=== PATIENT | female | born 1930 | race Hispanic/Latino ===

== ENCOUNTER → 2018-04-28 | Outpatient (CLI) | payer OTHER, MEDICARE | END | disposition home or self-care (01) | LOC: RAH 11:29 | PROVIDERS: ATTEND Internal Medicine | DX: M16.11 Unilateral primary osteoarthritis, right hip (principal); M85.88 Other specified disorders of bone density and structure, other site; W18.30XA Fall on same level, unspecified, initial encounter; Y93.89 Activity, other specified; Y92.89 Other specified places as the place of occurrence of the external cause; Y99.8 Other external cause status | CPT/HCPCS: 73502 ==

== ENCOUNTER 2018-11-15 12:11 | Emergency (ER) | payer OTHER, MEDICARE ==
[2018-11-15] MEDS ORDERED: ONDANSETRON HCL 4 MG/2 ML VIAL ONE ×2 (13:04→13:08)
[2018-11-15] MEDS ORDERED: MORPHINE SULFATE 4 MG/1ML SYG ONE ×2 (13:04→13:08)
[2018-11-15 13:26] LABS: HEMATOCRIT 32.9 % (36-48); LYMPHOCYTES % (AUTO) 14.2 % (21.0-51.0); MEAN CORPUSCULAR HEMOGLOBIN 32.6 pg (27.0-33.0); MEAN CORPUSCULAR HGB CONC 33.6 g/dL (32.0-36.0); MEAN CORPUSCULAR VOLUME 97.1 fL (79-99); MONOCYTES % (AUTO) 4.5 % (3.0-13.0); NEUTROPHILS % (AUTO) 80.3 % (40.0-77.0); PLATELET COUNT (AUTO) 278 K/uL (130-400); RED BLOOD CELL COUNT(AUTO) 3.38 MIL/uL (4.00-5.50); RED CELL DISTRIBUTION WIDTH 14.3 % (11.0-15.5); WHITE BLOOD COUNT (AUTO) 11.2 K/uL (4.8-10.8)
[2018-11-15 14:31] LABS: POTASSIUM 4.5 mmol/L (3.5-5.1)
[2018-11-15 14:36] LABS: ALBUMIN 3.4 g/dL (3.5-5.0); BILIRUBIN,TOTAL 0.3 mg/dL (0.2-1.0); TOTAL PROTEIN, SERUM 7.3 g/dL (6.0-8.3)
== END 2018-11-15 16:25 | disposition home or self-care (01) ==
LOC: EDH 12:11
DX: S42.291A Other displaced fracture of upper end of right humerus, initial encounter for closed fracture (principal); E10.8 Type 1 diabetes mellitus with unspecified complications; I10 Essential (primary) hypertension; F03.90 Unspecified dementia, unspecified severity, without behavioral disturbance, psychotic disturbance, mood disturbance, and anxiety; F41.9 Anxiety disorder, unspecified; F32.9 Major depressive disorder, single episode, unspecified; E78.5 Hyperlipidemia, unspecified; W01.0XXA Fall on same level from slipping, tripping and stumbling without subsequent striking against object, initial encounter; Y93.89 Activity, other specified; Y92.89 Other specified places as the place of occurrence of the external cause; Y99.8 Other external cause status
CPT/HCPCS: 36415; 73030; 73060; 80053; 85025; 96374; 96375; 99284; J2270; J2405 ×2

== ENCOUNTER → 2019-01-07 | Outpatient (CLI) | payer OTHER, MEDICARE | END | disposition home or self-care (01) | LOC: RAH 12:06 | PROVIDERS: ATTEND Internal Medicine | DX: S42.201D Unspecified fracture of upper end of right humerus, subsequent encounter for fracture with routine healing (principal); L84 Corns and callosities; X58.XXXD Exposure to other specified factors, subsequent encounter | CPT/HCPCS: 73030; 73060 ==

== ENCOUNTER → 2019-01-26 | Outpatient (CLI) | payer OTHER, MEDICARE | END | disposition home or self-care (01) | LOC: RAH 09:07 | PROVIDERS: ATTEND Internal Medicine | DX: K80.20 Calculus of gallbladder without cholecystitis without obstruction (principal); K59.00 Constipation, unspecified; M43.8X6 Other specified deforming dorsopathies, lumbar region; M47.816 Spondylosis without myelopathy or radiculopathy, lumbar region; R16.0 Hepatomegaly, not elsewhere classified | CPT/HCPCS: 74018; 76700 ==

== ENCOUNTER → 2019-04-28 | Outpatient (CLI) | payer OTHER, MEDICARE | END | disposition home or self-care (01) | LOC: RAH 11:52 | PROVIDERS: ATTEND Internal Medicine | DX: M19.011 Primary osteoarthritis, right shoulder (principal); M85.811 Other specified disorders of bone density and structure, right shoulder | CPT/HCPCS: 73030 ==

== ENCOUNTER 2020-09-29 20:55 | Inpatient (IN) | payer OTHER, MEDICARE ==
[~2020-09-29] VITALS: Ht 160 cm; Wt 69.9 kg
[2020-09-29] MEDS ORDERED: SODIUM CHLORIDE 0.9% 1000ML 1,000 ML IV ONE (21:06)
[2020-09-29 21:31] LABS: BASOPHILS % (AUTO) 0.2 % (0.0-5.0); HEMATOCRIT 28.8 % (36-48); LYMPHOCYTES % (AUTO) 13.6 % (21.0-51.0); MEAN CORPUSCULAR HEMOGLOBIN 32.2 pg (27.0-33.0); MEAN CORPUSCULAR HGB CONC 35.4 g/dL (32.0-36.0); MEAN CORPUSCULAR VOLUME 90.9 fL (79-99); MONOCYTES % (AUTO) 6.2 % (3.0-13.0); NUCLEATED RED BLOOD CELLS 0.7 % (0.0-0.19); PLATELET COUNT (AUTO) 132 K/uL (130-400); RED BLOOD CELL COUNT(AUTO) 3.17 MIL/uL (4.00-5.50); RED CELL DISTRIBUTION WIDTH 12.9 % (11.0-15.5)
[2020-09-29 21:42] LABS: INR 1.07 (0.85-1.15); PARTIAL THROMBOPLASTIN TIME 30.2 SEC (26.3-35.5); PROTHROMBIN TIME 11.5 SEC (9.6-11.6)
[2020-09-29 21:51] LABS: ALBUMIN 2.4 g/dL (3.5-5.0); BILIRUBIN,TOTAL 0.3 mg/dL (0.2-1.0); TOTAL PROTEIN, SERUM 5.9 g/dL (6.0-8.3)
[2020-09-29 21:55] LABS: MAGNESIUM 2.1 mg/dL (1.80-2.40)
[2020-09-29 21:58] LABS: CREATININE 7.9 mg/dL (0.5-1.5); POTASSIUM 2.4 mmol/L (3.5-5.1)
[2020-09-29 22:10] LABS: APPEARANCE,URINE SL CLOUDY (CLEAR); BILIRUBIN,URINE SMALL (NEGATIVE); COLOR,URINE OTHER (YELLOW); GLUCOSE, URINE (UA) NEGATIVE (NEGATIVE); KETONES,URINE 5 mg/dL (NEGATIVE); LEUKOCYTE ESTERASE ,URINE NEGATIVE (NEGATIVE); NITRATE,URINE POSITIVE (NEGATIVE); OCCULT BLOOD,URINE NEGATIVE (NEGATIVE); PROTEIN,URINE TRACE mg/dL (NEGATIVE); UROBILINOGEN,URINE 0.2 mg/dL (0.2-1.0)
[2020-09-29 22:17] LABS: AMORPHOUS SEDIMENT,UR Rare /LPF (None Seen); BACTERIA,URINE Few /HPF (None Seen); RBC,URINE 0-1 /HPF (0-1); SQUAMOUS EPITHELIAL CELL,UR Few /HPF (0-2); WBC,URINE 0-1 /HPF (0-1)
[2020-09-29 22:18] LABS: COARSE GRANULAR CASTS,URINE 0-2 /LPF (None Seen)
[2020-09-30] MEDS ORDERED: METRONIDAZOLE 500MG/100ML BAG 100 ML IV SCH (00:30)
[2020-09-30] MEDS ORDERED: ONDANSETRON HCL 4 MG/2 ML VIAL IV PRN (00:30)
[2020-09-30] MEDS ORDERED: ACETAMINOPHEN 325 MG TAB PO PRN (00:30)
[2020-09-30] MEDS: POTASSIUM CHLORIDE 20 MEQ ERTAB PO SCH (00:30)
[2020-09-30] MEDS ORDERED: SODIUM CHLORIDE 0.9% 1000ML 1,000 ML IV SCH (00:30)
[2020-09-30] MEDS ORDERED: FAMOTIDINE 20MG TAB 20 MG TAB ONE (00:45)
[2020-09-30] MEDS ORDERED: METRONIDAZOLE 500MG/100ML BAG 100 ML ONE (00:46)
[2020-09-30] MEDS ORDERED: POTASSIUM CHLORIDE 20 MEQ ERTAB PO ONE (00:46)
[2020-09-30 02:00] VITALS: BP 94/43
[2020-09-30] MEDS ORDERED: MEMA5TAB7 PO ×2 (02:22→08:39)
[2020-09-30] MEDS ORDERED: ASPI-1443 PO (02:22)
[2020-09-30] MEDS ORDERED: LISI40TA4 PO (02:22)
[2020-09-30] MEDS ORDERED: AMLO-258 PO (02:22)
[2020-09-30] MEDS ORDERED: PRAV40TA3 PO ×2 (02:22)
[2020-09-30] MEDS ORDERED: LEVO75TA10 PO (02:22)
[2020-09-30] MEDS ORDERED: TRAZ-187 PO (02:22)
[2020-09-30 03:57] VITALS: BP 95/43
[2020-09-30] MEDS: INSULIN HUMULIN R 100 UNIT/ML 3ML SQ SCH ×3 (05:55→21:00)
[2020-09-30 06:16] LABS: BASOPHILS % (AUTO) 0.7 % (0.0-5.0); HEMATOCRIT 31.9 % (36-48); LYMPHOCYTES % (AUTO) 12.9 % (21.0-51.0); MEAN CORPUSCULAR HGB CONC 35.4 g/dL (32.0-36.0); MEAN CORPUSCULAR VOLUME 90.4 fL (79-99); MONOCYTES % (AUTO) 5.7 % (3.0-13.0); NEUTROPHILS % (AUTO) 77.3 % (40.0-77.0); NUCLEATED RED BLOOD CELLS 0.4 % (0.0-0.19); PLATELET COUNT (AUTO) 153 K/uL (130-400); RED BLOOD CELL COUNT(AUTO) 3.53 MIL/uL (4.00-5.50); RED CELL DISTRIBUTION WIDTH 12.9 % (11.0-15.5); WHITE BLOOD COUNT (AUTO) 5.6 K/uL (4.8-10.8)
[2020-09-30 06:30] LABS: CREATININE 6.9 mg/dL (0.5-1.5)
[2020-09-30 06:50] LABS: POTASSIUM 2.5 mmol/L (3.5-5.1)
--- NOTE | 2020-09-30 06:52 | NUR ---
Nursing Note-Critical Labs Paged Hospitalist at 6601 about K2.5 BUN 97. Pending Call back.
[2020-09-30] MEDS ORDERED: POTASSIUM CHLORIDE 10MEQ/100ML 100 ML IV PRN (07:30)
[2020-09-30] MEDS ORDERED: POTASSIUM CHLORIDE 20 MEQ ERTAB PO PRN (07:30)
[2020-09-30] MEDS ORDERED: LACTATED RINGERS 1000ML 1,000 ML IV ONE ×2 (07:47→16:18)
[2020-09-30 08:00] VITALS: BP 109/51
[2020-09-30] MEDS ORDERED: ESOM20TA PO (08:39)
[2020-09-30] MEDS ORDERED: METR-172 PO (08:39)
[2020-09-30] MEDS ORDERED: METO25TA6 PO (08:39)
[2020-09-30] MEDS ORDERED: SEMA7TAB PO (08:39)
[2020-09-30] MEDS ORDERED: INSLAN SQ (08:39)
[2020-09-30] MEDS ORDERED: LEVOTHYROXINE 75 MCG TABLET PO SCH (09:00)
[2020-09-30] MEDS ORDERED: FAMOTIDINE 20MG TAB 20 MG TAB PO SCH (09:00)
[2020-09-30] MEDS: CEFTRIAXONE SODIUM 1 GM IVP SCH (09:45)
[2020-09-30] MEDS: POTASSIUM CHLORIDE 10MEQ/100ML 100 ML IV PRN ×4 (09:45→21:14)
[2020-09-30] MEDS: PANTOPRAZOLE SODIUM 40 MG TABLET.DR PO SCH (10:09)
[2020-09-30] MEDS ORDERED: PHARMACY COMMUNICATION MISC SCH (10:15)
[2020-09-30 11:39] VITALS: BP 109/51
[2020-09-30] MEDS: METRONIDAZOLE 500MG/100ML BAG 100 ML IV SCH ×2 (13:43→21:12)
--- NOTE | 2020-09-30 14:00 | NUR ---
MET WITH PATIENT AND DAUGHTER AT BEDSIDE FOR DC PLANNING. DAUGHTER JANN OLIVO IS THE MPOA, AND STATES PATIENT LIVES WITH HER AND IS TOTAL CARE SECOND TO DEMENTIA. STATES SHE HAS A CANE, WALKER, ROLLING WALKER AND WHEELCHAIR, BUT LATELY JUST THE WHEELCHAIR SHE IS USING DAUGHTER IS THE PROVIDER, 41 HRS WEEKLY, AND DOES ALL THE DRIVING. STATES ITS GETTING MORE DIFFICULT TO TAKE PATIENT TO MD OFFICES APPT ETC BY PRIVATE VEHICLE AND IS HOPING FOR PT/HOME HEALTH TO MAINTAIN /IMPROVE FUNCTIONAL MOBILITY. DCP IS HOME, DAUGHTER STATES WILL NOT CONSIDER FACILITY PLACEMENT FOR [facility] UNLESS ABSOLUTELY NECESSARY. DAUGHTER TO PROVIDE TRANSPORT HOME. CM TO FOLLOW Addendum: 09/30/20 at 1455 by SJ RENEE RN CM Amended: Links added.
[2020-09-30 16:00] VITALS: BP 122/57
[2020-09-30] MEDS ORDERED: LACTATED RINGERS 1000ML 1,000 ML IV SCH (16:30)
[2020-09-30 20:00] VITALS: BP 107/50
[2020-10-01] MEDS: POTASSIUM CHLORIDE 20 MEQ ERTAB PO SCH ×2 (00:11→23:30)
[2020-10-01] MEDS: POTASSIUM CHLORIDE 10MEQ/100ML 100 ML IV PRN ×2 (00:30→05:26)
[2020-10-01 04:00] VITALS: BP 100/50
[2020-10-01] MEDS: METRONIDAZOLE 500MG/100ML BAG 100 ML IV SCH ×2 (04:19→13:16)
[2020-10-01 05:58] LABS: HEMATOCRIT 30.1 % (36-48); MEAN CORPUSCULAR HEMOGLOBIN 32.1 pg (27.0-33.0); MEAN CORPUSCULAR HGB CONC 35.5 g/dL (32.0-36.0); MEAN CORPUSCULAR VOLUME 90.4 fL (79-99); NUCLEATED RED BLOOD CELLS 0.3 % (0.0-0.19); RED BLOOD CELL COUNT(AUTO) 3.33 MIL/uL (4.00-5.50); WHITE BLOOD COUNT (AUTO) 6.7 K/uL (4.8-10.8)
[2020-10-01 06:19] LABS: POTASSIUM 2.9 mmol/L (3.5-5.1)
[2020-10-01] MEDS: LEVOTHYROXINE 75 MCG TABLET PO SCH (06:30)
[2020-10-01] MEDS: INSULIN HUMULIN R 100 UNIT/ML 3ML SQ SCH ×4 (06:30→21:03)
[2020-10-01] MEDS: CEFTRIAXONE SODIUM 1 GM IVP SCH (06:30)
[2020-10-01] MEDS: PANTOPRAZOLE SODIUM 40 MG TABLET.DR PO SCH (07:51)
[2020-10-01] MEDS: POTASSIUM CHLORIDE 10% ELIXIR 20 MEQ/15 ML UDCUP PO PRN ×3 (07:52→17:01)
[2020-10-01 07:59] VITALS: BP 119/62
[2020-10-01 11:34] VITALS: BP 128/54
[2020-10-01] MEDS ORDERED: SYRING IVP SCH (13:30)
[2020-10-01] MEDS ORDERED: SODIUM CHLORIDE 0.9% IVP SCH (13:30)
[2020-10-01] MEDS ORDERED: SODIUM BICARB 8.4% IVP SCH (13:30)
[2020-10-01 16:00] VITALS: BP 149/61
[2020-10-01 19:05] VITALS: BP 118/57
[2020-10-01] MEDS: POTASSIUM CHLORIDE 10 MEQ/TAB.SA PO SCH (19:53)
[2020-10-01] MEDS: CEPHALEXIN 500 MG CAPSULE PO SCH (19:54)
[2020-10-01] MEDS: METRONIDAZOLE 500 MG TABLET PO SCH (19:54)
[2020-10-01 23:08] VITALS: BP 124/57
[2020-10-02] MEDS: ACETAMINOPHEN 325 MG TAB PO PRN ×2 (00:24→21:24)
[2020-10-02 03:20] VITALS: BP 136/65
[2020-10-02 05:25] LABS: HEMATOCRIT 33.3 % (36-48); MEAN CORPUSCULAR HEMOGLOBIN 31.8 pg (27.0-33.0); MEAN CORPUSCULAR HGB CONC 35.1 g/dL (32.0-36.0); MEAN CORPUSCULAR VOLUME 90.5 fL (79-99); RED BLOOD CELL COUNT(AUTO) 3.68 MIL/uL (4.00-5.50); RED CELL DISTRIBUTION WIDTH 13.4 % (11.0-15.5); WHITE BLOOD COUNT (AUTO) 9.6 K/uL (4.8-10.8)
[2020-10-02] MEDS: LEVOTHYROXINE 75 MCG TABLET PO SCH (05:52)
[2020-10-02] MEDS: INSULIN HUMULIN R 100 UNIT/ML 3ML SQ SCH ×4 (05:53→21:00)
[2020-10-02 06:05] LABS: CREATININE 1.8 mg/dL (0.5-1.5)
[2020-10-02] MEDS: POTASSIUM CHLORIDE 10MEQ/100ML 100 ML IV PRN (06:57)
[2020-10-02] MEDS: POTASSIUM CHLORIDE 10 MEQ/TAB.SA PO SCH (06:57)
[2020-10-02 08:00] VITALS: BP 132/59
[2020-10-02] MEDS ORDERED: POTASSIUM CHLORIDE 10 MEQ/TAB.SA PO SCH (09:00)
[2020-10-02] MEDS: PANTOPRAZOLE SODIUM 40 MG TABLET.DR PO SCH (09:19)
[2020-10-02] MEDS: CEPHALEXIN 500 MG CAPSULE PO SCH ×2 (09:19→21:26)
[2020-10-02] MEDS: METRONIDAZOLE 500 MG TABLET PO SCH ×2 (09:19→21:25)
[2020-10-02] MEDS: POTASSIUM CHLORIDE 20 MEQ ERTAB PO SCH ×3 (09:37→21:23)
[2020-10-02] MEDS: 1/2 NORMAL SALINE 1,000 ML IV SCH (09:41)
[2020-10-02] MEDS: ZINC OXIDE OINT 56.7 GM TP SCH ×3 (09:45→21:25)
--- NOTE | 2020-10-02 11:30 | NUR ---
CM Note: [facility] pending approval CM met with pt and daughter in room, discussed MD recommendation, daughter request HH, declined SNF placement, daughter signed KEL for [facility]. CM faxed order and clinicals to [facility], confirmation received, spoke to Darshana, will check benefits. Pt pending approval. Primary nurse Protestant RN aware. CM to continue to follow up.
[2020-10-02 12:00] VITALS: BP 131/65
--- NOTE | 2020-10-02 15:00 | NUR ---
[facility] CONSULT Patient assessed by [facility] team. See Inpatient Wound Assessment. Assessment and recommendations discussed with primary nurse. Orders entered. Education provided. Addendum: 10/05/20 at 1648 by BABS OLIVEIRA LVN LVN W Amended: Links added.
[2020-10-02] MEDS ORDERED: SODIUM CHLORIDE 0.9% IVP SCH (15:01)
[2020-10-02] MEDS ORDERED: SODIUM BICARB 8.4% IVP SCH (15:01)
[2020-10-02] MEDS ORDERED: SYRING IVP SCH (15:01)
[2020-10-02 16:00] VITALS: BP 136/62
[2020-10-02 19:44] VITALS: BP 142/62
[2020-10-02] MEDS: SODIUM BICARBONATE 650 MG TAB PO SCH (21:25)
[2020-10-02] MEDS ORDERED: INSULIN GLARGINE 100 UNITS/ML 10 ML VIAL SQ SCH (22:30)
[2020-10-02 23:38] VITALS: BP 135/66
--- NOTE | 2020-10-03 02:25 | NUR ---
PATIENT ALERT TO SELF. FOLLOWS COMMANDS. NO RESPIRATORY DISTRESS NOTED. BOWEN IN PLACE DRAINING YELLOW URINE. CORINA CARE GIVEN AND DR MTATHEWS ADMIN TO EXCORIATED BUTTOCKS AND FOLDS. DAUGHTER IS IN ROOM AND ASSISTED PATIENT WITH NIGHT MEDICATION. NO COUGH WHEN SWALLOWING PILLS OR THIN LIQUIDS.
[2020-10-03 04:00] VITALS: BP 139/58
[2020-10-03] MEDS: 1/2 NORMAL SALINE 1,000 ML IV SCH (04:41)
[2020-10-03 05:33] LABS: HEMATOCRIT 30.5 % (36-48); MEAN CORPUSCULAR HEMOGLOBIN 32.2 pg (27.0-33.0); MEAN CORPUSCULAR HGB CONC 35.7 g/dL (32.0-36.0); MEAN CORPUSCULAR VOLUME 90.2 fL (79-99); RED BLOOD CELL COUNT(AUTO) 3.38 MIL/uL (4.00-5.50); RED CELL DISTRIBUTION WIDTH 13.7 % (11.0-15.5); WHITE BLOOD COUNT (AUTO) 12.7 K/uL (4.8-10.8)
[2020-10-03 06:07] LABS: CREATININE 1.2 mg/dL (0.5-1.5); POTASSIUM 4.4 mmol/L (3.5-5.1)
[2020-10-03] MEDS: LEVOTHYROXINE 75 MCG TABLET PO SCH (06:24)
[2020-10-03] MEDS: INSULIN HUMULIN R 100 UNIT/ML 3ML SQ SCH (06:56)
[2020-10-03] MEDS: PANTOPRAZOLE SODIUM 40 MG TABLET.DR PO SCH (07:42)
[2020-10-03] MEDS: SODIUM BICARBONATE 650 MG TAB PO SCH (07:42)
[2020-10-03] MEDS: METRONIDAZOLE 500 MG TABLET PO SCH (07:43)
[2020-10-03] MEDS: CEPHALEXIN 500 MG CAPSULE PO SCH (07:43)
[2020-10-03] MEDS: ZINC OXIDE OINT 56.7 GM TP SCH (07:43)
[2020-10-03] MEDS: POTASSIUM CHLORIDE 20 MEQ ERTAB PO SCH (07:43)
--- NOTE | 2020-10-03 08:00 | NUR ---
ASSESSMENT PT IS AWAKE AND ALERT TO SELF, DENIES CP DENIES SOB DENIES NV. NO COMPLAINTS AT THIS TIME. SITTING UPRIGHT IN BED. EATING BREAKFAST, AM MEDS GIVEN 1 BY 1. NO CHOKING NO GAGGING NOTED. CALL LIGHT WITHIN REACH. DR DIETRICH ROUNDED, ORDERS RECEIVED.
[2020-10-03] MEDS ORDERED: LEVO500T89 PO (08:25)
[2020-10-03 08:30] VITALS: BP 132/58
[2020-10-03] MEDS ORDERED: INSLAN SQ (08:30)
[2020-10-03] MEDS ORDERED: LEVOFLOXACIN 500 MG TABLET PO SCH (09:00)
--- NOTE | 2020-10-03 09:00 | NUR ---
FC REMOVED CATH TIP INTACT, NO COMPLAINTS. DTV IN 8HRS.
--- NOTE | 2020-10-03 09:00 | NUR ---
CM Note: [facility] approval CM spoke to Normal w/[facility], pt has approval, safe to dc to home via private car once clear, Dr Sawant updated. Primary nurse Tee VINSON aware. CM to continue to follow up.
--- NOTE | 2020-10-03 11:15 | NUR ---
REPORT GIVEN TO VISHNU POPE AT [facility]
--- NOTE | 2020-10-03 11:18 | NUR ---
DISCHARGE DC INSTRUCTIONS GIVEN TO PATIENT AND DAUGHTER, JANN. VERBALIZE UNDERSTANDING OF MEDICATIONS FOR DISCHARGE, FOLLOW UP APPOINTMENTS WITH DR DIETRICH. ALL QUESTIONS ANSWERED AND PAPERWORK SIGNED. PIV REMOVED CATH TIP INTACT, TELE PACK REMOVED. ALL BELONGINGS GATHERED, DOWN TO VEHICLE VIA WC.
== END 2020-10-03 11:40 | disposition home health service (06) | DRG 372 ==
LOC: EDH 20:55 → EDHIP 09-30 00:22 → 4AH 09-30 01:59 → 4DH 09-30 06:35
PROVIDERS: ADMIT Internal Medicine; ATTEND Internal Medicine
DX: A02.0 Salmonella enteritis (principal); N17.9 Acute kidney failure, unspecified; F03.91 Unspecified dementia, unspecified severity, with behavioral disturbance; F32.1 Major depressive disorder, single episode, moderate; Z66 Do not resuscitate; E86.0 Dehydration; E87.6 Hypokalemia; I44.7 Left bundle-branch block, unspecified; D64.9 Anemia, unspecified; E03.9 Hypothyroidism, unspecified; E11.42 Type 2 diabetes mellitus with diabetic polyneuropathy; E11.51 Type 2 diabetes mellitus with diabetic peripheral angiopathy without gangrene; E11.65 Type 2 diabetes mellitus with hyperglycemia; E53.8 Deficiency of other specified B group vitamins; E78.2 Mixed hyperlipidemia; F41.1 Generalized anxiety disorder; G47.00 Insomnia, unspecified; I25.10 Atherosclerotic heart disease of native coronary artery without angina pectoris; I70.0 Atherosclerosis of aorta; K21.9 Gastro-esophageal reflux disease without esophagitis; K44.9 Diaphragmatic hernia without obstruction or gangrene; K82.8 Other specified diseases of gallbladder; M47.815 Spondylosis without myelopathy or radiculopathy, thoracolumbar region; M54.40 Lumbago with sciatica, unspecified side; Z20.828 Contact with and (suspected) exposure to other viral communicable diseases; N39.3 Stress incontinence (female) (male); F32.9 Major depressive disorder, single episode, unspecified; N18.30 Chronic kidney disease, stage 3 unspecified; I12.9 Hypertensive chronic kidney disease with stage 1 through stage 4 chronic kidney disease, or unspecified chronic kidney disease; E11.22 Type 2 diabetes mellitus with diabetic chronic kidney disease; Z79.4 Long term (current) use of insulin; Z79.899 Other long term (current) drug therapy
CPT/HCPCS: 36415; 71045; 74176; 76770; 80048; 80053; 81001; 82270; 82550; 82948; 83605; 83690; 83735; 83880; 84132; 84145; 84484; 85025; 85027; 85610; 85730; 87040; 87046; 87077; 87088; 87186; 87324; 87426; 93005; 97039; A4344; G0378; J0696; J1815; J3490; J7030; J7120; U0003

== ENCOUNTER → 2020-12-25 | Outpatient (CLI) | payer OTHER, MEDICARE ==
[~2020-12-25] MED LIST: ASPI-1443 PO; ESOM20TA PO; INSLAN SQ; LEVO500T89 PO; LEVO75TA10 PO; METO25TA6 PO; PRAV40TA3 PO
== END | disposition home or self-care (01) ==
LOC: OIH 12:54
PROVIDERS: ATTEND Internal Medicine
DX: M16.11 Unilateral primary osteoarthritis, right hip (principal); M21.851 Other specified acquired deformities of right thigh; M85.88 Other specified disorders of bone density and structure, other site; M17.11 Unilateral primary osteoarthritis, right knee; M47.817 Spondylosis without myelopathy or radiculopathy, lumbosacral region
CPT/HCPCS: 72100; 73502; 73560

== ENCOUNTER → 2021-03-09 | Outpatient (CLI) | payer OTHER, MEDICARE | END | disposition home or self-care (01) | LOC: RAH 08:18 | PROVIDERS: ATTEND Internal Medicine | DX: G45.9 Transient cerebral ischemic attack, unspecified (principal); R94.31 Abnormal electrocardiogram [ECG] [EKG] | CPT/HCPCS: 93880 ==

== ENCOUNTER → 2021-03-22 | Outpatient (CLI) | payer OTHER, MEDICARE | END | disposition home or self-care (01) | LOC: RAH 09:55 | PROVIDERS: ATTEND Internal Medicine | DX: I07.1 Rheumatic tricuspid insufficiency (principal); G45.9 Transient cerebral ischemic attack, unspecified; I10 Essential (primary) hypertension; E78.5 Hyperlipidemia, unspecified; E11.9 Type 2 diabetes mellitus without complications | CPT/HCPCS: 93306; 93356 ==